=== PATIENT | male | born 1985 | race Caucasian/White ===

== ENCOUNTER → 2020-04-03 15:13 | Outpatient (CLI) | payer BC, SELFPAY ==
[2020-04-05 18:37] LABS: Covid-19 Nasal PCR Sendout Lex Positive
== END ==
PROVIDERS: PCP Family Medicine; Visit Provider Nurse Practitioner Family
DX: Z20.828 Contact with and (suspected) exposure to other viral communicable diseases (principal); U07.1 COVID-19
CPT/HCPCS: U0004

== ENCOUNTER 2020-08-16 09:00 | Emergency (ER) | payer BC, SELFPAY ==
[2020-08-16 09:05] VITALS: BP 130/87; PULSE 93; RESP 20; TEMP 37; O2SAT 97; BMI 24.5
[2020-08-16 09:25] LABS: UTC Influenza A Antigen Negative (Negative)
[2020-08-16 09:26] LABS: UTC Influenza B Antigen Negative (Negative)
--- NOTE | 2020-08-16 09:58 | HMH.EDUTC ---
[facility] – [place] Disposition Clinical Impression: Nausea Diarrhea Qualifiers: Diarrhea type: unspecified type Qualified Code(s): R19.7 - Diarrhea, unspecified Disposition: Home, Self-Care Condition on Discharge: Good Instructions: Nausea and Vomiting-Adult, Diarrhea Additional Instructions: Monitor temperature. Seek treatment if fever develops. Follow-up immediately if new or worse symptoms worsen or no noticeable improvement over 48 hours. Increase fluids such as water, Gatorade, Powerade, juice or Pedialyte with limited formula/dietary in children No food is okay as long as you are drinking. Once ready to eat start bland such as bananas, rice, applesauce, toast. Contagious until no diarrhea, vomiting, fever times 48 hours without medication Avoid antidiarrheals unless told otherwise. Best to let the virus run its course. Follow-up immediately for new or worsening symptoms or no noticeable improvement over the next 48 hours. self isolate until covid test is known to be neg Prescriptions: ondansetron HCL [Zofran 4mg Tab*] 4 mg PO TIDP PRN 5 Days #14 tab PRN Reason: Nausea Transmission Status: Pending to [id number] Referrals: Kamran Arriola MD [Primary Care Provider] - Time of Disposition: 10:06 Medical Decision Making - Ankit Inquiry Pt receiving controlled substance: No Vital Signs: 08/16/20 09:05 Temperature 98.6 F Temperature Source Oral Pulse Rate [Right Brachial] 93 H Respiratory Rate 20 Blood Pressure [Right Arm] 130/87 Blood Pressure Mean [Right Arm] 101 Blood Pressure Source [Right Arm] Automatic Cuff Blood Pressure Position [Right Arm] Sitting 02 Sat by Pulse Oximetry 97 Oxygen Delivery Method Room Air - Lab Data Lab Results 08/16/20 09:25: Influenza Type A Ag Negative, Influenza Type B Ag Negative Orders (Tests/Meds): ORDERS Category Date Time Status Covid-19 Nasal PCR ([facility]) Routine Lab 08/16/20 09:46 Received [facility] – [place], [place] HPI - General Chief complaint: [facility] Stated complaint: cough, nausea, diarrhea Time Seen by Provider: 08/16/20 09:58 Mode of Arrival: Ambulatory Source of Information: Patient Limitations: No Limitations Description of Symptoms (Recalled from Triage Doc. by RN): PATIENT C/O COUGH, FATIGUE, NAUSEA, DIARRHEA, DIZZINESS, LIGHT-HEADED AND HEADACHE SINCE YESTERDAY. HE STATES COUGH STARTED ABOUT A MONTH AGO; STARTED OUT PRODUCTIVE AND NOW IS A DRY COUGH HEENT Symptoms (Recalled from RN notes): Yes Resp Symptoms (Recalled from RN notes): Yes Skin Symptoms (Recalled from RN notes): No MS Symptoms (Recalled from RN notes): No Functional Status (Recalled from RN notes): WNL - History of Present Illness Provider Complaint: 34 yr old male presents for c/o cough, body aches, chills,fatigue,nausea,diarrhea,dizziness,headache that started yesterday. pt states yesterday all of a sudden he became weak and felt like he was going to vomit. pt states he did have a cough and coughed up small amout of clear drainage but now its just a dry cough. pt states he left work early had a fever 99.2 and went home and fell asleep on the couch. pt states this am the dizzyness is better but still tired and nausea. - Related Data Previous Rx's Medication Instructions Recorded ondansetron HCL [Zofran 4mg Tab*] 4 mg PO TIDP PRN 5 Days #14 tab 08/16/20 Allergies Allergy/AdvReac Type Severity Reaction Status Date / Time No Known Allergies Allergy Verified 08/16/20 09:17 - Worker's Comp Is this a Worker's Comp case?: No [facility] History - Hepatitis A Screen Drug use history?: No High risk sexual behaviors?: No History of sexually transmitted infection?: No Currently employed?: No Childcare worker?: No Do you have indoor plumbing?: Yes Do you have electricity?: Yes Attestation statement:: This patient has been screened for Hepatitis A risk factors. I have reviewed the patient's past medical history: Yes - Social History Smoking Status: Never smok
[2020-08-16 10:15] VITALS: BP 130/87; PULSE 93; RESP 20; TEMP 37; O2SAT 97
== END 2020-08-16 10:19 | disposition home or self-care (01) ==
PROVIDERS: Emergency Provider Nurse Practitioner Family; PCP Family Medicine
DX: Z20.822 Contact with and (suspected) exposure to COVID-19 (principal); R11.0 Nausea; R05 Cough; R19.7 Diarrhea, unspecified
CPT/HCPCS: 87804; 99202; G0463; U0003

== ENCOUNTER 2021-09-08 19:31 | Emergency (ER) | payer BC, SELFPAY ==
[2021-09-08 19:32] VITALS: BP 146/100; PULSE 89; RESP 16; TEMP 37.3; O2SAT 99; BMI 25.8
--- NOTE | 2021-09-08 19:33 | ECG_ITS ---
APPROVED REPORT Exam: Resting ECG HR:107 bpm ECG Measurements Heart Rate 107 AXES RI 119 P 70 QRSd 99 QRS 37 QT 341 T -54 QTc 403 Conclusion SINUS TACHYCARDIA WITH SHORT RI INTERVAL NONSPECIFIC T-WAVE ABNORMALITY ABNORMAL ECG UNCONFIRMED REPORT Electronically signed by : Fabio Campoverde MD 09/10/2021 21:12:24
--- NOTE | 2021-09-08 19:33 | XR_ITS ---
PROCEDURE INFORMATION: Exam: XR Chest Exam date and time: 09/08/2021 7:35 PM Age: 35 years old Clinical indication: Pain; Left-sided; Additional info: Chest pain on the left side with tingling down left arm x 5 hours TECHNIQUE: Imaging protocol: XR of the chest. Views: 1 view. COMPARISON: No relevant prior studies available. FINDINGS: Lungs: Lungs are clear. Pleural spaces: No pleural effusion. No pneumothorax. Heart/Mediastinum: Cardiomediastinal silouhette is within normal limits. Bones/joints: No acute osseous abnormality. Soft tissues: Unremarkable. IMPRESSION: No acute findings.
[2021-09-08 19:46] LABS: Basophils # 0.1 K/mm3 (0-0.2); Basophils % 1.6 % (0.1-2.0); Eosinophils # 0.1 K/mm3 (0.0-0.4); Eosinophils % 0.6 % (0.1-12.0); Hematocrit 47.7 % (42.0-52.0); Lymphocytes # 2.1 K/mm3 (0.7-4.5); Lymphocytes % 25.3 % (10-50); Mean Corpuscular HGB Conc 33.5 g/dL (31.8-35.4); Mean Corpuscular Hemoglobin 30.7 pg (27.0-31.2); Mean Corpuscular Volume 91.7 fl (80-94); Monocytes # 0.5 K/mm3 (0.1-1.0); Monocytes % 5.9 % (1.7-9.3); Neutrophils # 5.4 K/mm3 (1.8-7.8); Neutrophils % 66.7 % (37.0-80.0); Platelet Count 312 K/mm3 (142-424); Red Cell Distribution Width 13.5 % (11.5-17.5); White Blood Count 8.1 K/mm3 (4.8-10.8)
[2021-09-08 19:56] LABS: Alanine Aminotransferase 22 U/L (12-78); Albumin Level 4.7 g/dl (3.5-5.0); Albumin/Globulin Ratio 1.5 (1.1-1.8); Alkaline Phosphatase 150 U/L (38-126); Anion Gap 13.1 mEq/L (5-15); Aspartate Amino Transferase 27 U/L (17-59); Bilirubin,Total 0.6 mg/dl (0.2-1.3); Blood Urea Nitrogen 9 mg/dl (9-20); Calcium 9.4 mg/dl (8.4-10.2); Carbon Dioxide 27 mmol/L (22.0-30.0); Chloride 103 mmol/L (98-107); Creatinine Clearance Estimated 130 mL/min (50-200); Estimated Glomerular Filt Rate 97 ml/min (>60); GFR (African American) 117 ML/MIN (>60); Globulin 3.2 g/dL (1.3-3.2); Glucose 108 mg/dl (74-100); Potassium 3.1 mmoL/L (3.5-5.1); Sodium 140 mmol/L (136-145); Total Protein,Serum 7.9 g/dl (6.3-8.2)
[2021-09-08 20:09] LABS: Troponin I < 0.01 ng/ml (0.00-0.034)
--- NOTE | 2021-09-08 20:12 | HMH.EDCP ---
ED Disposition Clinical Impression: Atypical chest pain Disposition: Home, Self-Care Condition on Discharge: Good Instructions: DI for Atypical Chest Pain Additional Instructions: see card in am Referrals: Provider,Referral, [Referring] - - Critical Care Critical Care Time: No Attestation: On 09/08/21, the high probability of a clinically significant, sudden or life threatening deterioration of the following system(s) required my full and direct attention, intervention and personal management. The time I documented below is in addition to time spent performing reported procedures but includes the following listed in this critical care notation. Medical Decision Making - Medical Records Medical records reviewed: Yes: I reviewed the patient's medical records. - Ankit Inquiry Pt receiving controlled substance: No Vital Signs: 09/08/21 19:32 Temperature 99.2 F Temperature Source Oral Pulse Rate [Left Radial] 89 Respiratory Rate 16 Blood Pressure [Left Arm] 146/100 H Blood Pressure Mean [Left Arm] 115 Blood Pressure Source [Left Arm] Automatic Cuff Blood Pressure Position [Left Arm] Sitting 02 Sat by Pulse Oximetry 99 Oxygen Delivery Method Room Air - Lab Data Lab results reviewed: Yes: I reviewed the patient's lab results. Lab Results 09/08/21 19:39: WBC 8.1, RBC 5.20, Hgb 16.0, Hct 47.7, MCV 91.7, MCH 30.7, MCHC 33.5, RDW 13.5, Plt Count 312, MPV 8.0, Neut % (Auto) 66.7, Lymph % (Auto) 25.3, Gove % (Auto) 5.9, Eos % (Auto) 0.6, Baso % (Auto) 1.6, Neut # (Auto) 5.4, Lymph # (Auto) 2.1, Gove # (Auto) 0.5, Eos # (Auto) 0.1, Baso # (Auto) 0.1 09/08/21 19:39: Sodium 140, Potassium 3.1 L, Chloride 103, Carbon Dioxide 27, Anion Gap 13.1, BUN 9, Creatinine 0.90, Estimated Creat Clear 130, Estimated GFR 97, Est GFR ( Amer) 117, Glucose 108 H, Calcium 9.4, Total Bilirubin 0.6, AST 27, ALT 22, Alkaline Phosphatase 150 H, Troponin I < 0.01, Total Protein 7.9, Albumin 4.7, Globulin 3.2, Albumin/Globulin Ratio 1.5 09/08/21 19:39: C-Reactive Protein 2.6 09/08/21 19:39: ESR 10 09/08/21 19:39: Procalcitonin 0.046 Result diagrams: 09/08/21 19:39 09/08/21 19:39 Orders (Tests/Meds): ED MEDICATIONS Generic Name Dose Route Start Last Admin Trade Name Freq PRN Reason Stop Dose Admin Sodium Chloride 1,000 mls @ 999 mls/hr 09/08/21 20:15 09/08/21 20:17 Sod Chlor 0.9% 1000ml Bag IV 09/08/21 21:15 999 mls/hr .Q1H1M VAHE Administration Sodium Chloride 8 ml 09/08/21 21:31 Sodium Chloride 0.9% 10ml Vial IV 10/08/21 21:30 NEEDED PRN dilute pepcid Discontinued Medications Generic Name Dose Route Start Last Admin Trade Name Freq PRN Reason Stop Dose Admin Aspirin 325 mg 09/08/21 19:45 09/08/21 19:47 Aspirin 325mg Tablet PO 09/08/21 19:46 325 mg ONCE ONE Administration Famotidine 20 mg 09/08/21 21:31 09/08/21 21:51 Famotidine 20mg/2ml Vial IV 09/08/21 21:32 20 mg ONCE ONE Administration Metoclopramide HCl 10 mg 09/08/21 21:31 09/08/21 21:51 Metoclopramide Hcl 10mg/2ml Vial IVP 09/08/21 21:32 10 mg ONCE ONE Administration Nitroglycerin 1 gm 09/08/21 20:13 09/08/21 20:16 Nitroglycerin 1 Gm Ointment TD 09/08/21 20:14 1 gm ONCE ONE Administration ORDERS Category Date Time Status Troponin I Q3H Lab 09/08/21 22:45 Ordered Troponin I Q3H Lab 09/09/21 01:45 Ordered ECG Request by /Nse Stat Y 09/08/21 19:33 Ordered - Radiology Data #1 Image(s): Chest Image Reviewed: Yes I have reviewed radiologist's interpretation Preliminary Findings: Normal/NAD - ECG Data Tracing #1 Normal Sinus Rhythm: Yes Ischemic changes: non-specific ST-T wave changes Medical Decision Narrative: pt has stable exam and labs and wishes to follow up in am and not be admitted Chest Pain HPI - General Chief Complaint: Chest Pain Stated Complaint: CHEST PAIN Time Seen by Provider: 09/08/21 20:00 Mode of Arrival: Ambulatory
--- NOTE | 2021-09-08 20:14 | PC.NURSE ---
PT DENIES SHORTNESS OF AIR. NO COMPLAINTS VOICED. WCM.
[2021-09-08 20:30] VITALS: BP 128/94; PULSE 82; RESP 19; O2SAT 98
[2021-09-08 20:35] LABS: C-Reactive Protein 2.6 mg/L (0-4)
[2021-09-08 20:49] LABS: Procalcitonin 0.046 ng/mL (0.0-2.0)
[2021-09-08 20:55] LABS: Erythrocyte Sedimentation Rate 10 mm/hr (0-15)
[2021-09-08 21:00] VITALS: BP 134/93; PULSE 75; RESP 14; O2SAT 97
[2021-09-08 21:30] VITALS: BP 129/88; PULSE 79; RESP 14; O2SAT 97
[2021-09-08 21:59] VITALS: BP 129/79; PULSE 81; RESP 16; TEMP 36.7; O2SAT 97
== END 2021-09-08 22:00 | disposition home or self-care (01) ==
PROVIDERS: Emergency Medicine; Emergency Provider Emergency Medicine; PCP Family Medicine
DX: R07.9 Chest pain, unspecified (principal); R20.2 Paresthesia of skin; Z82.49 Family history of ischemic heart disease and other diseases of the circulatory system
CPT/HCPCS: 71045; 80053; 84145; 84484; 85025; 85651; 86140; 93005; 96361; 96374; 96375; 99285

== ENCOUNTER → 2021-09-14 08:16 | Outpatient (CLI) | payer BC, SELFPAY ==
--- NOTE | 2021-09-14 | CA_ITS ---
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: Glo Mederos, Ht: 5 ft 9 in Wt: 167 lbs BSA: 1.91 m2 HR: 70 bpm BP: 126/87 mmHg Stress Test Details Test: Manav HR Resting HR: 80 bpm Max Heart Rate (APMHR): 186.838244 bpm Max HR Achieved: 170 bpm Target HR (85% APMHR): 158.306097 bpm % of APMHR: 91.40 Recovery HR: 104 bpm BP Resting BP: 118/83 mmHg Max BP: 170/98 mmHg Recovery BP: 152.0/95.0 mmHg ECG Resting ECG: NSR, Inferior STT Abnormaities Clinical Reason for Termination: Fatigue Exercise duration: 10:27 min Highest Stage Achieved: III Exercise capacity: 12.8 METs Stress ECG Conclusion 10:27 Minutes 12.8 METs Max HR: 170 % of PM: 108 Test stopped due to: SOA, legs tired Symptom: No CP Arrhythmias/Ectopy: None ST-T Changes: <1.5mm ST Segment changes Couclusion: Negative Stress. Test Summary REST . . . . . . . Sitting REST . . . . . . . Standing REST 10:47 0.0 1.2 80 . 118/ 83 . . Stage 1 01:00 10.0 1.7 89 . . . . Stage 1 02:00 10.0 1.7 97 . . . . Stage 1 03:00 10.0 1.7 87 . 130/ 80 . . Stage 2 01:00 12.0 2.5 106 . . . . Stage 2 02:00 12.0 2.5 112 . . . . Stage 2 03:00 12.0 2.5 109 . 132/ 88 . . Stage 3 01:00 14.0 3.4 125 . . . . Stage 3 02:00 14.0 3.4 141 . . . . Stage 3 03:00 14.0 3.4 148 . 150/ 90 . . Stage 4 01:00 16.0 4.2 164 . . . . Stage 4 01:27 16.0 4.2 170 . . . Stop exercise at 10:27 RECOVERY 01:00 0.0 0.0 147 . . . . RECOVERY 02:00 0.0 0.0 126 . . . . RECOVERY 03:00 0.0 0.0 107 . . . . RECOVERY 04:00 0.0 0.0 106 . 152/ 95 . . RECOVERY 04:29 0.0 0.0 107 . 152/ 95 . . Electronically signed by : Robin Martinez MD 09/25/2021 14:18:58
== END ==
PROVIDERS: PCP Family Medicine; Visit Provider Nurse Practitioner
DX: R07.89 Other chest pain (principal)
CPT/HCPCS: 93017; 93306

== ENCOUNTER 2021-10-03 09:06 | Emergency (ER) | payer BC, SELFPAY ==
[2021-10-03 09:36] VITALS: BP 138/72; PULSE 93; RESP 17; TEMP 36.9; O2SAT 99; BMI 25.1
--- NOTE | 2021-10-03 09:51 | HMH.EDUTC ---
[facility] [place] Clinical Impression: COVID-19 Disposition: Home, Self-Care Condition on Discharge: Good Instructions: DI for COVID-19 (Suspected or Confirmed ) Additional Instructions: Based on current CDC guidelines, quarantine X 5 days from onset of symptoms then mask X 5 additional days Referrals: Kamran Arriola MD [Primary Care Provider] - Forms: Work/School Release Time of Disposition: 09:58 Medical Decision Making - Ankit Inquiry Pt receiving controlled substance: No Vital Signs: 10/03/21 09:36 Temperature 98.4 F Temperature Source Oral Pulse Rate [Left Radial] 93 H Respiratory Rate 17 Blood Pressure [Right Arm] 138/72 Blood Pressure Mean [Right Arm] 94 02 Sat by Pulse Oximetry 99 - Lab Data Lab results reviewed: Yes: I reviewed the patient's lab results. [facility] [place] - General Stated complaint: at home pos test 10/02, congestion, runny nose Time Seen by Provider: 10/03/21 09:51 Source of Information: Patient Description of Symptoms (Recalled from Triage Doc. by RN): patient comes in today for a covid test. patient took an at home test and it was positive, patient comes in to get another confirmitive test for work. patient states that he has had body aches and headaches since yesterday. HEENT Symptoms (Recalled from RN notes): Yes Resp Symptoms (Recalled from RN notes): No Skin Symptoms (Recalled from RN notes): No MS Symptoms (Recalled from RN notes): No Functional Status (Recalled from RN notes): wnl - History of Present Illness Provider Complaint: Patient has had headache, runny nose X 2 days. No fever. Took home COVID19 test yesterday and it was positive. Needs confirmation test for work. Onset (ago): day(s) (2) Location: head Radiation: non-radiation Relieving factors: none Exacerbating factors: none Associated symptoms: headaches Treatments prior to arrival: none - Related Data Home Medications Medication Instructions Recorded Confirmed No Known Home Medications 09/08/21 09/24/21 Allergies Allergy/AdvReac Type Severity Reaction Status Date / Time No Known Allergies Allergy Verified 10/03/21 09:41 - Worker's Comp Is this a Worker's Comp case?: No [facility] History - Hepatitis A Screen Attestation statement:: This patient has been screened for Hepatitis A risk factors. I have reviewed the patient's past medical history: Yes - Social History Smoking Status: Never smoker Tobacco Type: smokeless tobacco # Packs/Day (cigarettes): 0 Alcohol Intake: never Occupational Status: other ROS Obtained: Yes All systems reviewed & no additional complaints - Constitutional Constitutional: Reports headache(s) - ENT Ears, Nose, Mouth, and Throat: Reports nasal congestion Physical Exam - General General appearance: alert, in no apparent distress - Head Head exam: normocephalic - Eye Eye exam: Present: PERRL - ENT ENT exam: Present: normal oropharynx, TM's normal bilaterally - Neck Neck exam: Present: normal inspection. Absent: lymphadenopathy - Chest Chest inspection: Present: normal inspection, symmetric chest wall rise - Respiratory Respiratory exam: Present: normal lung sounds bilaterally - Cardiovascular Cardiovascular exam: Present: regular rate, normal rhythm - Neurological Exam Neurological exam: Present: alert, oriented X3 - Psychiatric Psychiatric exam: Present: normal affect, normal mood - Skin Skin exam: Present: warm, dry, intact
[2021-10-03 10:08] VITALS: BP 138/72; PULSE 93; RESP 17; TEMP 36.9
== END 2021-10-03 10:09 | disposition home or self-care (01) ==
PROVIDERS: Emergency Provider Physician Assistant; PCP Family Medicine
DX: U07.1 COVID-19 (principal); M79.10 Myalgia, unspecified site; R51.9 Headache, unspecified
CPT/HCPCS: 99213; C9803; G0463; U0003; U0005

== ENCOUNTER → 2022-05-14 07:41 | Outpatient (CLI) | payer BC, SELFPAY ==
--- NOTE | 2022-05-14 07:52 | CT_ITS ---
FINAL REPORT TECHNIQUE: After the administration of oral and intravenous contrast, axial images were obtained through the abdomen and pelvis by computed tomography. The study was performed with techniques to keep radiation dose as low as reasonably achievable, (ALARA). Individual dose reduction techniques using automated exposure control or adjustment of mA and/or kV according to the patient's size were employed. CLINICAL HISTORY: LOWER ABD PAIN FINDINGS: Abdomen: The lung bases are clear. The liver is normal in size and attenuation. The spleen is unremarkable. The adrenals are normal. The pancreas is unremarkable. There are several less than 3 mm nonobstructing left renal stones. The aorta is normal in caliber. There is no free fluid or adenopathy. Pelvis: The appendix is unremarkable. The urinary bladder is unremarkable. There is no free fluid or adenopathy. IMPRESSION: Left nephrolithiasis. Reviewed, Interpreted and Dictated by Gregorio Nelson III, MD Transcribed by Erin Hoover Authenticated and [facility]
== END ==
PROVIDERS: PCP Family Medicine; Visit Provider Nurse Practitioner Family
DX: R10.30 Lower abdominal pain, unspecified (principal)
CPT/HCPCS: 74177; Q9967